=== PATIENT | female | born 1945 | race Caucasian/White ===

== ENCOUNTER → 2020-09-24 14:33 | Outpatient (CLI) | payer OTHER, SELFPAY ==
--- NOTE | 2020-09-24 14:34 | DI.US.S_ITS ---
PROCEDURE: US PELVIC COMPLETE INDICATIONS: POSTMENOPAUSAL BLEEDING TECHNIQUE: Real-time scanning was performed of the pelvic organs, with image documentation. Additional endovaginal scanning was necessary due to incomplete visualization of the adnexal and endometrial structures by transabdominal scanning. COMPARISON: None. FINDINGS: Uterus: Uterus is normal in size at 4.5 x 5.4 x 7.0 cm, retroverted. The endometrium measures 11.1 mm in combined thickness. There is a left anterior intramural 1.2 cm fibroid. Ovaries: Not well seen Other: No pathologic free abdominal or pelvic fluid. IMPRESSION: Source of postmenopausal bleeding is not seen. The ovaries could not be effectively visualized due to overlying bowel gas and presumed superimposed postmenopausal ovarian atrophy. Depending on the clinical status follow-up by MR scanning may be warranted. Dictated by: Braxton Allan M.D. on 09/24/2020 at 16:26 Approved by: Braxton Allan M.D. on 09/24/2020 at 16:28
== END ==
PROVIDERS: PCP Internal Medicine; Referring Provider Obstetrics & Gynecology; Visit Provider Obstetrics & Gynecology
DX: N95.0 Postmenopausal bleeding (principal); D25.1 Intramural leiomyoma of uterus
CPT/HCPCS: 76830; 76856

== ENCOUNTER 2020-10-30 07:40 | Day surgery (SDC) | payer OTHER, SELFPAY ==
--- NOTE | 2020-10-30 | PATH_ITS ---
[facility] Accession Number: [id number] . 01 Material submitted: . endometrium - ENDOMETRIAL CURETTINGS . 01 Clinical history: . SDC . 02 Diagnosis: Endometrial Curettings: Endometrial adenocarcinoma, favor FIGO 2; please see comment. . MRV 11/03/2020 1021 Local . 02 Comment: As part of routine director quality assurance, this case was also reviewed by Dr. Guerra, who agrees with the interpretation. . Acess to clinic phone unsuccessful after multiple attempts on 11-03-20 at approximately 9:49 - 9:54 a.m. . Although there are very focal regions that are architecturally concerning for a a possible serous phenotype (small buds), the cytologic features do not appear to approach a high grade category and many other malignant cell groups appear to have a fibrovascular core. Grading may best be performed on the excised specimen. . 02 Electronically signed: . Cahr Gómez MD, Pathologist NPI- [id number] . 01 Gross description: . ENDOMETRIAL CURETTINGS: Received in formalin are multiple fragment(s) of gaytan, soft tissue measuring 1.7 x 0.8 x 0.2 cm in aggregate submitted entirely in 1 cassette(s) /QBJ 11/01/2020 0959 Local . 02 Pathologist provided ICD-10: C54.1 . 02 CPT . 780046 Performed at: 01 [facility] [address] [facility], [place], [place] [id number] MD Harry Peterson MD Phone: [phone] Performed at: 02 [facility] [address] [place], [place] [id number] MD Jen Morales MD Phone: [phone]
[2020-10-30 08:19] LABS: COVID19 -Nasal RAPID Negative (Negative)
[2020-10-30 08:36] VITALS: BP 165/83; PULSE 77; RESP 17; TEMP 37.1; O2SAT 99; BMI 36.5
[2020-10-30] MEDS: LACTATED RINGERS 1,000 ML 42 ML IV (08:47)
--- NOTE | 2020-10-30 09:28 | PM.HP.1 ---
History of Present Illness History of Present Illness Date Patient Seen: 10/30/20 Time Patient Seen: 09:28 Chief complaint: SDC Narrative: Patient is a 74-year-old 2 para 2 with postmenopausal bleeding and endometrial cancer by endometrial biopsy in the office. Not enough tissue to do grading. Patient History Surgical History (Updated 12/13/17 @ 05:48 by Conversion Provider) History of third molar tooth extraction Status post appendectomy Status post breast biopsy Status post surgery (09/19/15) Status post tonsillectomy and adenoidectomy Family & Social History Social History: household members spouse Tobacco & Substance use: Smoking Status Never smoker alcohol intake never Substance Use Type does not use Meds Home Medications and Allergies Home Medications Medication Instructions Recorded Confirmed Type Xarelto 20 mg PO QDAY17 #30 tab 06/26/16 10/30/20 Rx levothyroxine 75 mcg capsule 88 mcg PO DAILY 10/20/20 10/30/20 History lisinopril 20 mg tablet 20 mg PO DAILY 10/20/20 10/30/20 History metoprolol succinate [Toprol XL] 100 mg PO QDAY 10/30/20 10/30/20 History Allergies Allergy/AdvReac Type Severity Reaction Status Date / Time No Known Drug Allergies Allergy Verified 10/30/20 08:35 Exam Vital Signs (past 8 hours): - 10/30/20 08:36 Temperature 98.8 F Pulse Rate 77 Respiratory Rate 17 Blood Pressure 165/83 H Pulse Oximetry 99 Oxygen Delivery Method Room Air Oxygen Flow Rate 0 Narrative Exam Narrative: HEENT: No thyromegaly, no anterior cervical or supraclavicular lymphadenopathy. Lungs:Clear to auscultation bilaterally, no wheezes. Cardiovascular: Regular rate and rhythm, no murmurs, rubs, or gallops. Abdomen: Well-healed scars. No hepatosplenomegaly. No masses palpable. External genitalia: Normal Vagina: Normal Cervix: Normal Bimanual exam: 7 Week size retroverted uterus. Mobile. Rectal: No masses. Objective Labs Labs: Laboratory Results - last 24 hr 10/30/20 07:51 SARS-CoV-2 (PCR) Negative Assessment & Plan Assessment & Plan narrative: Assessment: 74-year-old 2 para 2 with postmenopausal bleeding and endometrial cancer, not enough tissue to grade Plan: D&C The risks, benefits, and alternatives to the procedure were explained to the patient. The risks including bleeding, infection, and uterine perforation. She understands these risks and agrees to proceed. A full par Q was held and consent form was signed. COVID-19 COVID-19 status: Negative Result date/Date tested (Pos, Neg/Pending): 10/30/20 Time Spent With Patient Time with patient: less than 15 minutes Quality MIPS - Admit Advanced Care Plan / Current Medications Measures: #47 ? Advanced Care Plan Clinician documentation instruction: document at admission. [] I confirmed that the patient's Advance Care Plan is present, code status is documented, or surrogate decision maker is listed in the patient?s medical record. [SATISFIES MIPS PERFORMANCE] If Yes, Stop Here [] The patient?s Advance Care plan is not present because: (select) [MIPS PERFORMANCE EXCEPTION/EXCLUSION] [] I confirmed today that the patient does not wish or was not able to name a surrogate decision maker or provide an Advance Care Plan. [] Hospice care is currently being provided or has been provided this calendar year [] I did NOT confirm today the presence of an Advance Care Plan or surrogate decision maker documented within the patient's medical record. [DOES NOT SATISFY MIPS PERFORMANCE] #130 - Documentation of Current Medications in the Medical Record Clinician documentation instruction: use macro the first time you see a patient. [] I have utilized all available immediate resources to obtain, update, or review the patient?s current medications. [SATISFIES MIPS PERFORMANCE] If Yes, Stop Here [] The patient is not eligible for medication reconciliation; the patient is in an emergent medical situation where delaying treatment would jeopardize the patient?s health. [MIPS PERFORMANCE EXCEPTION/EXCLUSION] [] I did NOT confirm, update or review the patient's current list of medications today. [DOES NOT SATISFY MIPS PERFORMANCE] MIPS - CL Central Venous Catheter Placement Measure: #76 ? Prevention of Central Venous Catheter (CVC) ? Related Bloodstream Infection Clinician documentation instruction: use macro every time you place a central line. [] All elements of Maximal Sterile Barrier Technique, including hand hygiene, skin prep, and sterile ultrasound technique (if used) were followed. [SATISFIES MIPS PERFORMANCE] If Yes, Stop Here [] If ?No?, the medical reason all elements were NOT used for medical reason [] (ex. emergent condition). [] Maximal Sterile Barrier Technique was not followed, no reason provided [DOES NOT SATISFY MIPS PERFORMANCE] MIPS - DC Heart Failure Measures: #5 - Heart Failure (HF): Angiotensin-Converting Enzyme (VERO) Inhibitor or Angiotensin Receptor Reynaldo (ARB) Therapy for Left Ventricular Systolic Dysfunction (LVSD) and #8 - Heart Failure (HF): Beta-Reynaldo Therapy for Left Ventricular Systolic Dysfunction (LVSD) Clinician documentation instruction: use macro at every CHF discharge. [] The patient has current or prior documentation of left ventricular ejection fraction (LVEF) less than 40%, or moderate or severely depressed left ventricular systolic function. Answer both: [SATISFIES MIPS PERFORMANCE] [] The patient was prescribed or already taking an Angiotensin-Converting Enzyme (VERO) Inhibitor, or Angiotensin Receptor Reynaldo (ARB). [] The patient was prescribed or already taking a beta-reynaldo. If Yes to Both, Stop Here [] Patient not prescribed/taking: [MIPS PERFORMANCE EXCEPTION/EXCLUSION] [] VERO or ARB for medical/patient/system reason(s) including [] (ex. allergy, intolerance, contraindication) [] Beta-reynaldo for medical/patient/system reason(s) including [] (ex. allergy, intolerance, contraindication) [] Patient not prescribed/taking: [DOES NOT SATISFY MIPS PERFORMANCE] [] VERO or ARB, no reason given [] Beta-reynaldo, no reason given
--- NOTE | 2020-10-30 09:30 | PM.PREOP ---
Pre-operative Note COVID-19 COVID-19 status: Negative Result date/Date tested (Pos, Neg/Pending): 10/30/20 Interval Note History & Physical reviewed/Exam performed by Physician: Yes Changes to H&P: No H&P completed within 30 days and has changed as indicated here:: 10/30/20
--- NOTE | 2020-10-30 09:54 | SUR.OPER ---
Addendum entered by My Covington R.N. 10/30/20 11:24: Warm blankets placed to upper body. Original Note: Lithotomy on padded OR bed, head on pillow, arms secured on padded arm boards at <90 degrees abduction. Legs secured in padded yellow fins stirrups.
--- NOTE | 2020-10-30 10:03 | PM.GYNOP.1 ---
Operative Date/Time/Diagnoses Date of procedure: 10/30/20 Time of procedure: 10:03 Pre-op diagnosis: Postmenopausal bleeding Endometrial cancer, not enough tissue to grade Post-op diagnosis: same Procedure & Clinicians Procedure: Procedures Operation Date: 10/30/20 09:15 Actual Procedures Side Surgeon nick Beckett MD Indications: Postmenopausal bleeding Suspicious for endometrial cancer, not enough tissue in office biopsy Surgeon: Colleen Beckett Anesthesia Type: General (LMA) Operative Notes Findings: Eight week size anteverted uterus Large amount of endometrial curettings Closure Type: not applicable Specimen(s): endometrial curettings Estimated blood loss (mL): 10 Blood products transfused: none Procedure in detail: After informed consent was obtained, the patient was taken to the operating room where she was placed in the dorsal supine position. After adequate LMA general anesthesia was achieved, she was placed in the dorsal lithotomy position, and prepped and draped in the usual sterile fashion. A bivalve speculum was placed into the vagina and the anterior lip of the cervix grasped with a single-tooth tenaculum. Cervical os was sequentially dilated to the # 7 Hegar dilator. The curette passed easily into the endometrial cavity and a large amount of endometrial curettings were obtained. The instruments were removed from the uterus. Single-tooth tenaculum was removed from the anterior lip of the cervix. The bivalve speculum was removed from the vagina. Sponge, lap, and instrument counts were correct x2. The patient tolerated the procedure well, and was taken to PACU in stable condition. Complications: none Post-operative Condition: stable Disposition: PACU Plan for aftercare: Home after recovery
[2020-10-30 10:09] VITALS: BP 116/69; PULSE 63; RESP 10; TEMP 36.8; O2SAT 94
[2020-10-30 10:13] VITALS: BP 119/68; PULSE 64; RESP 10; O2SAT 97
[2020-10-30 10:18] VITALS: BP 113/89; PULSE 61; RESP 10; O2SAT 96
[2020-10-30] MEDS: OXYCODONE/ACETAMINOPHEN 5/325 TABLET 1 TAB PO (10:20)
[2020-10-30] MEDS: ONDANSETRON 4 MG/2 ML INJ IV (10:21)
[2020-10-30 10:24] VITALS: BP 112/72; PULSE 63; RESP 10; O2SAT 97
[2020-10-30 10:27] VITALS: BP 128/75; PULSE 61; RESP 10; TEMP 36.8; O2SAT 97
== END 2020-10-30 10:40 | disposition home or self-care (01) ==
PROVIDERS: PCP Internal Medicine; Referring Provider Obstetrics & Gynecology; Visit Provider Obstetrics & Gynecology
PROC: (CPT 58120; principal; 2020-10-30 09:15)
DX: C54.1 Malignant neoplasm of endometrium (principal); I48.91 Unspecified atrial fibrillation; Z20.822 Contact with and (suspected) exposure to COVID-19
CPT/HCPCS: 58120; 87635; J1100; J1885; J2405; J2704; J3010

== ENCOUNTER → 2020-12-10 13:57 | Outpatient (CLI) | payer OTHER, SELFPAY ==
--- NOTE | 2020-12-10 | DI.CT.S_ITS ---
PROCEDURE: CT CHEST ABD PEL W CON INDICATIONS: MALIGNANT NEOPLASM OF ENDOMETRIUM TECHNIQUE: After the administration of oral and intravenous contrast, 5 mm thick sections acquired from the lung apices to the symphysis. 5 mm coronal and sagittal reformats were performed, with additional 7 mm coronal MIP reformats through the lungs. For radiation dose reduction, the following was used: automated exposure control, adjustment of mA and/or kV according to patient size. COMPARISON: [facility], , PELVIC COMPLETE, 09/24/2020, 15:02. FINDINGS: Image quality: Excellent. CHEST: Lungs and pleura: No acute airspace opacities. No pleural effusions or pneumothorax. Central and peripheral airways appear patent and normal in caliber. Mediastinum: Heart size is normal. No pericardial effusion. No mediastinal or hilar adenopathy by size criteria. Thoracic aorta and central pulmonary arteries are normal in size. Esophagus is normal in caliber. No hiatal hernia. Chest wall: No axillary or supraclavicular adenopathy by size criteria. Thyroid gland appears normal . ABDOMEN: Solid organs: Liver is normal in size and enhancement. Gallbladder appears stone filled containing moderately large stones with faint peripheral calcification. Biliary distension or acute cholecystitis is not seen.. Biliary system is non dilated. Pancreas enhances normally. Spleen is normal in size and enhancement. No adrenal nodules. Kidneys demonstrate normal size and enhancement, without hydronephrosis. Peritoneum and bowel: Bowel loops demonstrate normal wall thickness and caliber. There is free fluid but no free air within the peritoneal space. This can be seen to a mild degree in the pre hepatic and perihepatic spaces of the upper abdomen. This also is found deep within the pelvis, and hysterectomy appears to have been recently performed given the pattern of mild edema along the body wall fat and what appears to be at least 1 port access pathway at the right mid abdomen. Nodularity within the peritoneal space along the omental surfaces is not found. Omental carcinomatosis is not identified, and the fluid present may reflect postoperative change given apparent recent operative intervention.. Nodes and vessels: No retroperitoneal or mesenteric adenopathy by size criteria. Aorta and inferior vena cava are normal in size. Miscellaneous: No ventral hernias. PELVIS: Genitourinary: Bladder wall thickness is normal. Miscellaneous: No inguinal hernias or adenopathy. Mild free fluid deep within the pelvis inferiorly, recent hysterectomy, no peritoneal mass is found. Bones: No suspicious bony lesions. No vertebral body compression fractures. IMPRESSION: Recent hysterectomy appears have been performed, and there is a small amount of free fluid within the peritoneal space of the deep lower margin of the pelvis and in the perihepatic space. No evidence of peritoneal carcinomatosis or adenopathy. No distant metastatic disease is found. Note is made of the gallbladder containing stones that are moderately large and peripherally calcified, and fill the gallbladder lumen but do not distend it. Dictated by: Braxton Allan M.D. on 12/10/2020 at 16:58 Approved by: Braxton Allan M.D. on 12/10/2020 at 17:06
[2020-12-10 14:30] LABS: BUN Creatinine Ratio 18.9 (6-22); Blood Urea Nitrogen 20 mg/dL (7-17); Estimated Glomerular Filt Rate 50.4 mL/min (>60)
[2020-12-10 15:01] LABS: Cancer Antigen 125 127 U/mL (0-35)
== END ==
PROVIDERS: PCP Internal Medicine; Referring Provider Obstetrics & Gynecology; Visit Provider Obstetrics & Gynecology
DX: C54.1 Malignant neoplasm of endometrium (principal)
CPT/HCPCS: 36415; 71260; 74177; 82565; 84520; 86304; Q9967

== ENCOUNTER → 2021-01-23 09:43 | Outpatient (CLI) | payer OTHER, SELFPAY ==
[2021-01-23 10:13] LABS: Add Manual Diff / Slide Review NO; Basophils Absolute Auto 100 /uL (0-100); Basophils Percent Auto 1.6 % (0-2); Eosinophils Absolute Auto 100 /uL (0-450); Eosinophils Percent Auto 1.5 % (2-4); Hematocrit 42.4 % (36-46); Hemoglobin 14.2 g/dL (12.0-16.0); Lymphocytes Absolute Auto 1700 /uL (1100-4500); Lymphocytes Percent Auto 30.9 % (25-40); Mean Corpuscular HGB Conc 33.4 % (30-36); Mean Corpuscular Hemoglobin 29.3 PG (26-34); Mean Corpuscular Volume 87.7 fL (80-100); Monocytes Absolute Auto 700 /uL (0-900); Monocytes Percent Auto 12.2 % (3-14); Neutrophils Absolute Auto 3000 /uL (1500-7000); Neutrophils Percent Auto 53.8 % (50-75); Platelet Count 202 X10^3/uL (150-400); Red Blood Cell Count 4.83 X10^6/uL (4.0-5.2); Red Cell Distribution Width 14.8 % (11.6-14.8); White Blood Cell Count 5.5 X10^3/uL (4.5-11.0)
[2021-01-23 10:23] LABS: Alanine Aminotransferase 22 IU/L (<35); Albumin 3.9 g/dL (3.5-5.0); Albumin Globulin Ratio 1.3 (1.0-2.8); Alkaline Phosphatase 71 U/L (38-126); Aspartate Aminotransferase 23 IU/L (14-36); Bilirubin Total 0.6 mg/dL (0.2-1.3); Blood Urea Nitrogen 16 mg/dL (7-17); Calcium 9.1 mg/dL (8.4-10.2); Carbon Dioxide 25 mmol/L (22-32); Chloride 103 mmol/L (98-107); Estimated Glomerular Filt Rate 57.7 mL/min (>60); Globulin 2.9 g/dL (1.7-4.1); Glucose 103 mg/dL (80-110); HEMOLYSIS < 15 (0-50); Potassium 4.7 mmol/L (3.4-5.1); Sodium 134 mmol/L (137-145); Total Protein 6.8 g/dL (6.3-8.2)
[2021-01-23 10:52] LABS: Cancer Antigen 125 33.7 U/mL (0-35)
== END ==
PROVIDERS: PCP Internal Medicine; Referring Provider Nurse Practitioner; Visit Provider Nurse Practitioner
DX: C54.1 Malignant neoplasm of endometrium (principal)
CPT/HCPCS: 36415; 80053; 85025; 86304

== ENCOUNTER → 2021-03-06 09:40 | Outpatient (CLI) | payer OTHER, SELFPAY ==
[2021-03-06 10:06] LABS: Add Manual Diff / Slide Review NO; Basophils Absolute Auto 0 /uL (0-100); Basophils Percent Auto 1.3 % (0-2); Eosinophils Absolute Auto 0 /uL (0-450); Eosinophils Percent Auto 0.9 % (2-4); Hematocrit 41.2 % (36-46); Hemoglobin 13.7 g/dL (12.0-16.0); Lymphocytes Absolute Auto 1300 /uL (1100-4500); Lymphocytes Percent Auto 34.8 % (25-40); Mean Corpuscular HGB Conc 33.3 % (30-36); Mean Corpuscular Hemoglobin 29.2 PG (26-34); Mean Corpuscular Volume 87.8 fL (80-100); Monocytes Absolute Auto 600 /uL (0-900); Neutrophils Absolute Auto 1800 /uL (1500-7000); Platelet Count 221 X10^3/uL (150-400); Red Blood Cell Count 4.69 X10^6/uL (4.0-5.2); Red Cell Distribution Width 16.8 % (11.6-14.8); White Blood Cell Count 3.8 X10^3/uL (4.5-11.0)
[2021-03-06 10:18] LABS: Alanine Aminotransferase 25 IU/L (<35); Albumin Globulin Ratio 1.4 (1.0-2.8); Alkaline Phosphatase 70 U/L (38-126); Aspartate Aminotransferase 28 IU/L (14-36); BUN Creatinine Ratio 21.2 (6-22); Bilirubin Total 0.4 mg/dL (0.2-1.3); Blood Urea Nitrogen 21 mg/dL (7-17); Calcium 9.1 mg/dL (8.4-10.2); Carbon Dioxide 26 mmol/L (22-32); Chloride 105 mmol/L (98-107); Estimated Glomerular Filt Rate 54.4 mL/min (>60); Globulin 2.9 g/dL (1.7-4.1); Glucose 98 mg/dL (80-110); HEMOLYSIS < 15 (0-50); Potassium 4.6 mmol/L (3.4-5.1); Sodium 136 mmol/L (137-145); Total Protein 6.9 g/dL (6.3-8.2)
[2021-03-06 10:49] LABS: Cancer Antigen 125 11.9 U/mL (0-35); Thyroid Stimulating Hormone 1.86 uIU/mL (0.47-4.68)
== END ==
PROVIDERS: PCP Internal Medicine; Referring Provider Internal Medicine Hematology & Oncology; Visit Provider Internal Medicine Hematology & Oncology
DX: C54.1 Malignant neoplasm of endometrium (principal); R68.89 Other general symptoms and signs
CPT/HCPCS: 36415; 80053; 84443; 85025; 86304

== ENCOUNTER → 2021-08-19 07:50 | Outpatient (CLI) | payer OTHER, SELFPAY ==
--- NOTE | 2021-08-19 | DI.CT.S_ITS ---
PROCEDURE: CT ABDOMEN PELVIS W CON INDICATIONS: Malignant neoplasm of endometrium TECHNIQUE: After the administration of oral and IV contrast, axial sections were acquired from the lung bases to the pubic symphysis. Coronal and sagittal reformats were performed. For radiation dose reduction, the following was used: automated exposure control, adjustment of mA and/or kV according to patient size. COMPARISON: [facility], CT, CT CHEST ABD PEL W CON, 12/10/2020, 15:02. FINDINGS: Image quality: Excellent. Lung bases: Unremarkable. Heart: No significant findings. ABDOMEN: Liver: Unremarkable. Gallbladder: No gallbladder wall thickening or pericholecystic fluid. A 2.2 cm peripherally calcified gallstone (2-24) is seen. Biliary ducts: Unremarkable. Pancreas: Unremarkable. Spleen: Unremarkable. Adrenal Glands: Unremarkable. Kidneys and Ureters: Symmetric enhancement without evidence of obstructive uropathy. Left cortical and parapelvic hypoattenuating lesions are seen, most consistent with cysts. Stomach and Bowel: Trace hiatal hernia. Descending/sigmoid diverticulosis. No evidence of intestinal obstruction or inflammatory change. Suture material in the cecal region, which may reflect prior appendectomy. Peritoneum: No abnormal intraperitoneal fluid. No free air. Ventral Wall: Trace fat containing periumbilical hernia. Abdominal Nodes: No retroperitoneal or mesenteric adenopathy by size criteria. Vessels: Aorta and inferior vena cava are normal in size. PELVIS: Pelvic Organs: The uterus appears surgically absent. Bladder: Unremarkable. Pelvic Nodes: No enlarged lymph nodes. Miscellaneous: No inguinal hernias are seen. Fatty atrophy of the left gluteus minimus/medius with calcification of the bilateral fascia. 5 mm fat attenuation lesion in the left tensor fascia yahaira, compatible with a intramuscular lipoma. Bones: Multifocal degenerative change. IMPRESSION: 1. No significant abnormality. 2. Cholelithiasis. Dictated by: Jarvis Aaron M.D. on 08/19/2021 at 9:28 Approved by: Jarvis Aaron M.D. on 08/19/2021 at 9:39
[2021-08-19 08:30] LABS: BUN Creatinine Ratio 13.9 (6-22); Blood Urea Nitrogen 16 mg/dL (7-17); Estimated Glomerular Filt Rate 45.8 mL/min (>60)
[2021-08-19 09:02] LABS: Cancer Antigen 125 6.1 U/mL (0-35)
== END ==
PROVIDERS: PCP Internal Medicine; Referring Provider Obstetrics & Gynecology; Visit Provider Obstetrics & Gynecology
DX: C54.1 Malignant neoplasm of endometrium (principal); K57.30 Diverticulosis of large intestine without perforation or abscess without bleeding; K80.20 Calculus of gallbladder without cholecystitis without obstruction
CPT/HCPCS: 36415; 74177; 82565; 84520; 86304

== ENCOUNTER → 2021-10-28 09:44 | Outpatient (CLI) | payer OTHER, SELFPAY ==
[2021-10-28 11:21] LABS: Cancer Antigen 125 < 5.5 U/mL (0-35)
== END ==
PROVIDERS: PCP Internal Medicine; Referring Provider Obstetrics & Gynecology; Visit Provider Obstetrics & Gynecology
DX: C54.1 Malignant neoplasm of endometrium (principal)
CPT/HCPCS: 36415; 86304

== ENCOUNTER → 2022-06-03 09:10 | Outpatient (CLI) | payer OTHER, SELFPAY | PROVIDERS: PCP Internal Medicine; Referring Provider Obstetrics & Gynecology; Visit Provider Obstetrics & Gynecology | DX: C54.1 Malignant neoplasm of endometrium (principal) | CPT/HCPCS: 36415; 86304 ==

== ENCOUNTER 2023-10-24 10:23 | Emergency (ER) | payer OTHER, SELFPAY ==
[2023-10-24] VITALS (9 sets, daily range): BP systolic 174–201; BP diastolic 74–92; PULSE 62–81; RESP 13–25; TEMP 36.7; O2SAT 91–100; BMI 40.7
--- NOTE | 2023-10-24 10:51 | DI.RAD.S_ITS ---
PROCEDURE: XR CHEST 1V INDICATIONS: chest pain TECHNIQUE: One view of the chest was acquired. COMPARISON: [facility], , CHEST 1 VIEW, 05/16/2017, 15:02. FINDINGS: Surgical changes and devices: Pulse generator, to the left of the T5 and T6 vertebrae. Lungs and pleura: Lungs are clear. No pleural effusions or pneumothorax. Mediastinum: Mediastinal contours appear normal. Heart size is normal. Bones and chest wall: No suspicious bony lesions. Overlying soft tissues appear unremarkable. IMPRESSION: No evidence acute pulmonary process. Dictated by: Herberth Bah M.D. on 10/24/2023 at 11:56 Approved by: Herberth Bah M.D. on 10/24/2023 at 11:56
[2023-10-24 10:59] LABS: Add Manual Diff / Slide Review NO; Basophils Absolute Auto 100 /uL (0-100); Basophils Percent Auto 0.9 % (0-2); Eosinophils Absolute Auto 100 /uL (0-450); Eosinophils Percent Auto 1.4 % (2-4); Hematocrit 43.7 % (36-46); Hemoglobin 14.8 g/dL (12.0-16.0); Lymphocytes Absolute Auto 1500 /uL (1100-4500); Mean Corpuscular HGB Conc 33.9 % (30-36); Mean Corpuscular Hemoglobin 29.8 PG (26-34); Mean Corpuscular Volume 87.9 fL (80-100); Monocytes Absolute Auto 600 /uL (0-900); Monocytes Percent Auto 8.7 % (3-14); Neutrophils Absolute Auto 4400 /uL (1500-7000); Platelet Count 196 X10^3/uL (150-400); Red Blood Cell Count 4.97 X10^6/uL (4.0-5.2); Red Cell Distribution Width 15.1 % (11.6-14.8); White Blood Cell Count 6.7 X10^3/uL (4.5-11.0)
[2023-10-24 11:08] LABS: INR 1.3 (0.9-1.3); Prothrombin Time 14.7 SECONDS (9.4-12.5)
[2023-10-24 11:10] LABS: PTT Partial Thromboplastin Tim 41 SECONDS (25.1-36.5)
[2023-10-24 11:13] LABS: Alanine Aminotransferase 25 IU/L (<35); Albumin 4.1 g/dL (3.5-5.0); Albumin Globulin Ratio 1.3 (1.0-2.8); Alkaline Phosphatase 84 U/L (38-126); Aspartate Aminotransferase 23 IU/L (14-36); BUN Creatinine Ratio 12.7 (6-22); Bilirubin Total 0.8 mg/dL (0.2-1.3); Blood Urea Nitrogen 14 mg/dL (7-17); Calcium 9.2 mg/dL (8.4-10.2); Carbon Dioxide 26 mmol/L (22-32); Chloride 107 mmol/L (98-107); Creatine Kinase 109 U/L (30-135); Estimated Glomerular Filt Rate 51 mL/min (>60); Globulin 3.1 g/dL (1.7-4.1); Glucose 121 mg/dL (80-110); HEMOLYSIS < 15 (0-50); Lipase 60 U/L (23-300); Potassium 4.1 mmol/L (3.4-5.1); Sodium 137 mmol/L (137-145); Total Protein 7.2 g/dL (6.3-8.2)
[2023-10-24 11:24] LABS: Troponin I < 0.012 ng/mL (0.01-0.034)
--- NOTE | 2023-10-24 11:42 | ED_ITS ---
HPI - Arrhythmia/Palpitations General Chief Complaint: Arrhythmia/Palpitations Stated Complaint: Afib Time Seen by Provider: 10/24/23 11:42 Source: patient Mode of arrival: Family Vehicle Limitations: no limitations History of Present Illness HPI narrative: 77-year-old female with history of atrial fibrillation on Xarelto, metoprolol, losartan and thyroid medication. Patient states her heart rate seems to slow down and she gets a little bit dizzy. Typically happens 2 or 3 times a day but has become more frequent. She states when she sits up and walks around it makes it feel better. She gets dizzy she has had no syncopal episodes. No diaphoresis. No chest pain, no shortness of breath. Occasional nausea but no vomiting. No issues with swelling, no changes to bowel movements or urination. Patient is currently wearing a ZIO patch which was ordered by her primary care physician. She is on Xarelto 20 mg daily for atrial fibrillation, 100 mg daily, losartan 50 mg daily and levothyroxine 88 mcg daily. Patient states no recent changes to her medications. She does have a history of cancer in 2020 and had hysterectomy with chemo and radiation in his now on surveillance every 6 months. She has not ever had any cardiac interventions. No known drug allergies. No tobacco, alcohol or recreational drugs. Related Data Home Medications Medication Instructions Recorded Confirmed levothyroxine 75 mcg capsule 88 mcg PO DAILY 10/20/20 10/30/20 lisinopril 20 mg tablet 20 mg PO DAILY 10/20/20 10/30/20 metoprolol succinate 25 mg 100 mg PO QDAY 10/30/20 10/30/20 tablet,extended release 24 hr (Toprol XL) Previous Rx's Medication Instructions Recorded rivaroxaban 10 mg tablet (Xarelto) 20 mg (2 x 10 mg) PO QDAY17 #30 06/26/16 tabs Allergies Allergy/AdvReac Type Severity Reaction Status Date / Time No Known Drug Allergies Allergy Verified 10/30/20 08:35 Review of Systems Review of Systems ROS Unobtainable: All systems reviewed & are unremarkable except as noted in HPI and below Patient History Surgical History Status post surgery (09/19/15) Status post breast biopsy Status post appendectomy Status post tonsillectomy and adenoidectomy History of third molar tooth extraction Social History household members: spouse Smoking Status: Never smoker alcohol intake: never Smoking Status: Never smoker alcohol intake frequency: 0-2 drinks per day Substance Use Type: does not use Exam Narrative Exam Narrative: GENERAL: Alert and oriented x three, female in mild distress. HEENT: Head normocephalic, atraumatic, EOMI, pupils reactive, face symmetric, moist mucous membranes NECK: Supple, full range of motion CARDIOVASCULAR: Regular rate and rhythm without murmurs, rubs or gallops. No JVD. RESPIRATORY: Breath sounds equal bilaterally, no wheezes rales or rhonchi. No tachypnea or accessory muscle use. ABDOMEN: Soft, nontender. Normoactive bowel sounds all 4 quadrants. No guarding or rebound, rigidity, no mass : No CVA tenderness EXTREMITIES: Normal range of motion, no clubbing or edema. Neurovascularly intact NEUROLOGICAL: Cranial nerves II through XII grossly intact. Moving all extremities SKIN: Warm, dry, no petechiae, no rashes or lesions. Initial Vital Signs Initial Vital Signs: Vital Signs Temperature 98.0 F 10/24/23 10:30 Pulse Rate 77 10/24/23 10:30 Respiratory Rate 16 10/24/23 10:30 Blood Pressure 186/84 H 10/24/23 10:30 Pulse Oximetry 100 10/24/23 10:30 Oxygen Delivery Method Room Air 10/24/23 10:30 Course Orders Ordered: Discontinued Medications Aspirin (Aspirin 81 Mg Chew Tab) 324 mg PO NOW ONE Stop: 10/24/23 10:52 Last Admin: 10/24/23 11:11 Dose: Not Given Documented By: RLS Vital Signs Vital signs: Vital Signs - 8 hr 10/24/23 10:30 10/24/23 10:36 10/24/23 10:39 Temperature 98.0 F Pulse Rate 77 81 77 Respiratory Rate 16 15 16 Blood Pressure 186/84 H Pulse Oximetry 100 91 99 Oxygen Delivery Method Room Air 10/24/23 10:39 10/24/23 11:00 10/24/23 11:01 Temperature Pulse Rate 68 Respiratory Rate 13 Blood Pressure 186/84 H 201/92 H Pulse Oximetry 97 Oxygen Delivery Method 10/24/23 11:01 Temperature Pulse Rate 70 Respiratory Rate 25 H Blood Pressure Pulse Oximetry 98 Oxygen Delivery Method MDM - Arrhythmia/Palpitations Lab Data 10/24/23 10:47 10/24/23 10:47 Labs: Lab Results 10/24/23 Range/Units 10:47 WBC 6.7 (4.5-11.0) X10^3/uL RBC 4.97 (4.0-5.2) X10^6/uL Hgb 14.8 (12.0-16.0) g/dL Hct 43.7 (36-46) % MCV 87.9 (80-100) fL MCH 29.8 (26-34) PG MCHC 33.9 (30-36) % RDW 15.1 H (11.6-14.8) % Plt Count 196 (150-400) X10^3/uL Neut % (Auto) 66.0 (50-75) % Lymph % (Auto) 23.0 L (25-40) % [place] % (Auto) 8.7 (3-14) % Eos % (Auto) 1.4 L (2-4) % Baso % (Auto) 0.9 (0-2) % Neut # (Auto) 4400 (8884-4486) /uL Lymph # (Auto) 1500 (7234-3193) /uL [place] # (Auto) 600 (0-900) /uL Eos # (Auto) 100 (0-450) /uL Baso # (Auto) 100 (0-100) /uL PT 14.7 H (9.4-12.5) SECONDS INR 1.3 (0.9-1.3) APTT 41 H (25.1-36.5) SECONDS Sodium 137 (137-145) mmol/L Potassium 4.1 (3.4-5.1) mmol/L Chloride 107 (98-107) mmol/L Carbon Dioxide 26 (22-32) mmol/L BUN 14 (7-17) mg/dL Creatinine 1.10 H (0.52-1.04) mg/dL Estimated GFR 51 L (>60) mL/min BUN/Creatinine Ratio 12.7 (6-22) Glucose 121 H (80-110) mg/dL Calcium 9.2 (8.4-10.2) mg/dL Magnesium 2.0 (1.6-2.3) mg/dL Total Bilirubin 0.8 (0.2-1.3) mg/dL AST 23 (14-36) IU/L ALT 25 (<35) IU/L Alkaline Phosphatase 84 (38-126) U/L Total Creatine Kinase 109 (30-135) U/L Troponin I < 0.012 (0.01-0.034) ng/mL Total Protein 7.2 (6.3-8.2) g/dL Albumin 4.1 (3.5-5.0) g/dL Globulin 3.1 (1.7-4.1) g/dL Albumin/Globulin Ratio 1.3 (1.0-2.8) Lipase 60 (23-300) U/L Imaging Data Chest x-ray: Radiologist's Impresson: Close Chest X-Ray (Signed) Herberth Bah - 10/24/23 Abdomen/Pelvis CT (Signed) Jarvis Aaron - 08/19/21 Chest/Abdomen/Pelvis CT (Signed) Braxton Allan - 12/10/20 Pelvis Ultrasound (Signed) Braxton Allan - 09/24/20 Telemetry Strips 05/16/17 Telemetry Strips 06/25/16 Launch?[place] [address] XRay Report Signed Patient: Liana Lamb MR#: [id number] : 1945 Acct:[id number] Age/Sex: 77 / F Date of Service: 10/24/23 Loc: ED Accession Number: [id number] Procedure: XR chest 1V Ordering Provider: Tiffany Clark D.O. PROCEDURE: XR CHEST 1V INDICATIONS: chest pain TECHNIQUE: One view of the chest was acquired. COMPARISON: [facility], CHEST 1 VIEW, 05/16/2017, 15:02. FINDINGS: Surgical changes and devices: Pulse generator, to the left of the T5 and T6 vertebrae. Lungs and pleura: Lungs are clear. No pleural effusions or pneumothorax. Mediastinum: Mediastinal contours appear normal. Heart size is normal. Bones and chest wall: No suspicious bony lesions. Overlying soft tissues appear unremarkable. IMPRESSION: No evidence acute pulmonary process. Dictated by: Herberth Bah M.D. on 10/24/2023 at 11:56 Approved by: Herberth Bah M.D. on 10/24/2023 at 11:56 ECG Data Attestation: I personally reviewed and interpreted this ECG as follows: Prior ECG tracings: available for review Interpretation: Sinus rhythm rate 81 MT 182 QRS 82 QTC 436. Sinus rhythm, LVH, nonspecific change. Patient has prior from 05/17/17 with no acute changes. MDM Narrative Medical decision making narrative: 77-year-old female who comes in with concern for slow heart rate, patient's heart rates been down into the 60s here, she has been slow in the past as well. She is hypertensive. Patient states she gets dizzy when it feels like her heart rate is slow. She has not had any syncope or other red flag symptoms. She does have a ZIO patch on currently. Patient's CBC shows a white count of 6.7 hemoglobin of 14 platelets of 196 INR is 1.3 creatinine is 1.1 prior was 1.15, potassium is 4.1 with a Mag of 2. Glucose is 121 with otherwise appropriate electrolytes and a BUN of 14. Negative troponin, negative LFTs. Chest x-ray is negative for acute change. EKG shows sinus rhythm with a rate of 80s with no acute rhythm changes. Telemetry has not had any major rhythm changes. Discussed with patient can continue with ZIO patch and follow up with primary care. She is quite symptomatic we discussed having her metoprolol and seeing if this makes any difference although we discussed she could have a recurrence of her atrial fibrillation her blood pressure may not be well controlled. She would like to try this and see if it makes any difference. We discussed that if she needs to she can add it back on any time and please contact her primary care to let them know about her changes to medication dose. We also reviewed return precautions all questions answered. Discharge Plan Departure Patient Disposition: Home Clinical Impression: Dizziness, Atrial fibrillation with rapid ventricular response Activity Restrictions/Additional Instructions: Your heart rate is occasionally in the 60s here in the department. Your blood pressure has not been low but you can try decreasing your metoprolol to see if this improves your symptoms. Take 1/2 tablet of your metoprolol daily. Continue to monitor your blood pressure as your other medications may need to be adjusted. There is a chance that by decreasing your metoprolol your atrial fibrillation may recur. Please follow up with your physician to make sure you are doing well, check your blood pressure and heart rate as well as for your ZIO patch report. Please return for passing out, increasing dizziness, new chest pain or shortness of breath, diaphoresis, new swelling of extremities, persistently very slow or fast heart rate, nausea or vomiting or other new or concerning changes. Prescriptions: No Action Xarelto 10 MG tablet 20 mg PO QDAY17 Qty: 30 0RF levothyroxine 75 mcg capsule 88 mcg PO DAILY lisinopril 20 mg tablet 20 mg PO DAILY metoprolol succinate [Toprol XL] 25 MG tablet extended release 24 hr 100 mg PO QDAY Referrals: Ata Torres MD [Primary Care Provider] - Stand Alone Forms: Patient Portal/API
== END 2023-10-24 12:54 | disposition home or self-care (01) ==
PROVIDERS: Emergency Provider Emergency Medicine; PCP Internal Medicine
DX: R42 Dizziness and giddiness (principal); I48.91 Unspecified atrial fibrillation
CPT/HCPCS: 36415; 71045; 80053; 82550; 83690; 83735; 84484; 85025; 85610; 85730; 93005; 93010; 99284

== ENCOUNTER → 2023-12-16 12:45 | Outpatient (CLI) | payer OTHER, SELFPAY ==
[2023-12-16 14:24] LABS: Hematocrit 43.8 % (36-46); Hemoglobin 14.6 g/dL (12.0-16.0); Mean Corpuscular HGB Conc 33.2 % (30-36); Mean Corpuscular Hemoglobin 29.7 PG (26-34); Mean Corpuscular Volume 89.3 fL (80-100); Platelet Count 211 X10^3/uL (150-400); Red Blood Cell Count 4.91 X10^6/uL (4.0-5.2); Red Cell Distribution Width 14.9 % (11.6-14.8); White Blood Cell Count 7.9 X10^3/uL (4.5-11.0)
[2023-12-16 14:50] LABS: BUN Creatinine Ratio 16.3 (6-22); Blood Urea Nitrogen 21 mg/dL (7-17); Calcium 8.9 mg/dL (8.4-10.2); Carbon Dioxide 22 mmol/L (22-32); Chloride 106 mmol/L (98-107); Estimated Glomerular Filt Rate 42 mL/min (>60); Glucose 83 mg/dL (80-110); HEMOLYSIS 76 (0-50); Potassium 4.6 mmol/L (3.4-5.1); Sodium 134 mmol/L (137-145)
== END ==
PROVIDERS: PCP Internal Medicine; Referring Provider Internal Medicine Cardiovascular Disease; Visit Provider Internal Medicine Cardiovascular Disease
DX: I10 Essential (primary) hypertension (principal)
CPT/HCPCS: 36415; 80048; 85027